=== PATIENT | male | born 1990 | race African-American/Black ===

== ENCOUNTER 2016-12-26 22:22 | Emergency (ER) | payer OTHER ==
[~2016-12-26] VITALS: Ht 167.6 cm; Wt 81.7 kg
[2016-12-26 22:23] VITALS: BP 134/100
[2016-12-26] MEDS ORDERED: MOBIC15 MG PO (22:57)
[2016-12-26] MEDS ORDERED: FLEXERIL PO (22:57)
[2016-12-26] MEDS ORDERED: MEDROLDOSEPACK PO (22:57)
== END 2016-12-26 23:20 | disposition home or self-care (01) ==
LOC: ER 22:22
DX: S16.1XXA Strain of muscle, fascia and tendon at neck level, initial encounter (principal); R51 Headache; F17.210 Nicotine dependence, cigarettes, uncomplicated; V89.2XXA Person injured in unspecified motor-vehicle accident, traffic, initial encounter; Y93.89 Activity, other specified; Y92.89 Other specified places as the place of occurrence of the external cause; Y99.8 Other external cause status